=== PATIENT | female | born 1965 | race Caucasian/White ===

== ENCOUNTER → 2016-12-13 | Outpatient (CLI) | payer OTHER | LOC: MAMO 15:20 | DX: Z12.31 Encounter for screening mammogram for malignant neoplasm of breast (principal); K52.89 Other specified noninfective gastroenteritis and colitis; I10 Essential (primary) hypertension | CPT/HCPCS: 93005 ==

== ENCOUNTER → 2016-12-17 | Outpatient (CLI) | payer OTHER | LOC: LBRF 10:42 | DX: R19.7 Diarrhea, unspecified (principal) | CPT/HCPCS: 87177 ==

== ENCOUNTER → 2016-12-19 | Outpatient (CLI) | payer OTHER | LOC: MAMO 13:56 | DX: Z12.31 Encounter for screening mammogram for malignant neoplasm of breast (principal); Z90.710 Acquired absence of both cervix and uterus | CPT/HCPCS: G0202 ==

== ENCOUNTER → 2020-11-28 | Outpatient (CLI) | payer OTHER ==
[~2020-11-28] MED LIST: CYCLOBENZAPRINE5 MG PO; IBUPROFEN800 MG PO; MORPHINE SULFAT15 M1 PO; NORCO 5-325 TA1 EACH PO; ZOFRAN 4 MG TAB4 MG PO
== END ==
LOC: KOH-I 08:57
DX: F17.210 Nicotine dependence, cigarettes, uncomplicated (principal); I25.10 Atherosclerotic heart disease of native coronary artery without angina pectoris
CPT/HCPCS: 71271

== ENCOUNTER → 2022-01-26 | Outpatient (CLI) | payer OTHER | LOC: MAMO 09:00 | DX: Z12.31 Encounter for screening mammogram for malignant neoplasm of breast (principal) | CPT/HCPCS: 77063; 77067 ==